=== PATIENT | female | born 1950 | race Hispanic/Latino ===

== ENCOUNTER → 2021-12-08 | Outpatient (CLI) | payer MEDICARE, OTHER ==
[~2021-12-08] MED LIST: ALPR0.5T8 PO; ATOR20TA65 PO; DICY20TA3 PO; ERGO500093 PO; FOLI1 PO; HYDR-4060 PO; LOSA50TA64 PO; METF-444 PO; SIME80TA12 PO
== END | disposition home or self-care (01) ==
LOC: RAH 10:01
PROVIDERS: ATTEND Internal Medicine Gastroenterology
DX: N82.4 Other female intestinal-genital tract fistulae (principal); Z93.3 Colostomy status
CPT/HCPCS: 72195; 74181

== ENCOUNTER → 2022-01-14 | Outpatient (CLI) | payer MEDICARE ==
[2022-01-14 11:01] LABS: CREATININE 1.2 mg/dL (0.5-1.5)
== END | disposition home or self-care (01) ==
LOC: RAH 09:52
PROVIDERS: ATTEND Surgery
DX: N82.4 Other female intestinal-genital tract fistulae (principal)
CPT/HCPCS: 36415; 74430; 82565; 84520

== ENCOUNTER → 2023-12-19 | Outpatient (CLI) | payer MEDICARE ==
[2023-12-19 13:04] LABS: CREATININE 2.5 mg/dL (0.5-1.0)
== END | disposition home or self-care (01) ==
LOC: LAB 12:20
PROVIDERS: ATTEND Internal Medicine
DX: R10.30 Lower abdominal pain, unspecified (principal)
CPT/HCPCS: 36415; 82565; 84520

== ENCOUNTER → 2023-12-26 | Outpatient (CLI) | payer MEDICARE | END | disposition home or self-care (01) | LOC: RAH 08:08 | PROVIDERS: ATTEND Internal Medicine | DX: K43.9 Ventral hernia without obstruction or gangrene (principal); K57.30 Diverticulosis of large intestine without perforation or abscess without bleeding; N32.89 Other specified disorders of bladder; I70.90 Unspecified atherosclerosis; M47.815 Spondylosis without myelopathy or radiculopathy, thoracolumbar region; R10.30 Lower abdominal pain, unspecified | CPT/HCPCS: 74176 ==

== ENCOUNTER 2024-09-14 10:57 | Emergency (ER) | payer MEDICARE ==
[~2024-09-14] VITALS: Ht 149.9 cm; Wt 62.1 kg
[2024-09-14] MEDS ORDERED: NEOMY SULF/BACITRA/POLYMYXIN B 1 EACH PACKET TP STA (11:32)
[2024-09-14] MEDS: LIDOCAINE HCL 1% 20 ML VIAL INJ STA (11:39)
--- NOTE | 2024-09-14 12:00 | ERN ---
ED Note History of Present Illness Stated Complaint: HEAD INJURY. FALL. LACERATION Chief Complaint: Head Injury Time Seen by MD: 11:03 Time Seen by Midlevel: 11:06 Dictation: 73-year-old female with a history of hypertension, diabetes, and kidney injury coming in complaints of head injury. Patient states this morning she put on her sandals did not tie them and when she ambulated she stumbled and hit the corner of the of base with her head. Patient has a laceration above the left eyebrow about 1 in. Denies taking any blood thinners. No LOC. no other complaints at this time. C-collar applied in triage. Allergies: Coded Allergies: No Known Drug Allergies (Unverified Allergy, Unknown, 08/20/15) Iodinated Contrast Media - IV Dye (Unverified Adverse Reaction, Mild, HIVES, 08/20/15) HAD 2 SMALL HIVES ON HER BODY. Uncoded Allergies: DUST, MOLDS, MILDEW, CATS, DOGS (Allergy, Unknown, HIVES, 08/20/15) FISH, CARROTS, PEANUTS,NUTS (Allergy, Unknown, HIVES, 08/20/15) Home Meds Reported Medications Simethicone (Simethicone) 80 Mg Tab.chew, 80 MG PO TIDP PRN for GI GAS, TAB.CHEW 11/25/19 Folic Acid (Folvite) 1 Mg Tab, 1 MG PO DAILY 11/25/19 Alprazolam (Alprazolam) 0.5 Mg Tablet, 0.5 MG PO HS PRN for INSOMNIA/SLEEP 11/25/19 Metformin HCl (Metformin HCl) 500 Mg Tablet, 250 MG PO DAILY 11/25/19 Ergocalciferol (Vitamin D2) (Vitamin D2) 1,250 Mcg Capsule, 1 CAP PO QWEEK 11/25/19 Losartan Potassium (Losartan Potassium) 50 Mg Tablet, 50 MG PO DAILY 11/25/19 Atorvastatin Calcium (Atorvastatin Calcium) 20 Mg Tablet, 20 MG PO HS 11/25/19 Hydrocodone/Acetaminophen (Hydrocodon-Acetaminophen 5-325) 1 Each Tablet, 1 TAB PO TIDP PRN for PAIN LEVEL 6 TO 10 11/25/19 Dicyclomine HCl (Dicyclomine HCl) 20 Mg Tablet, 20 MG PO TIDP PRN for PAIN LEVEL 1 TO 5, TAB 9/20/20 Past Medical History Past Medical History: Anemia, Cancer, CHF, High Cholesterol, Hypertension, Renal Disese Additional Past Medical Hx: COLON AND OVARIAN CANCER Surgical History: Other Surgical History Other: ILEOSTOMY Review of System Dictation Constitutional: Negative for fever,chills, and weight loss Eyes: Negative for injury, pain,redness, and discharge ENT: Negative for injury,pain or swelling Cardiovascular: Negative for chest pain, palpitations, and edema Respiratory: Negative for shortness of breath, cough, and wheezing, Abdomen/GI: Negative for abdominal pain, nausea, vomiting, diarrhea, and constipation Back: Negative for injury and pain : Negative for injury, bleeding and discharge MS/Extremity: Negative for injury and deformity Skin: Laceration to left eyebrow Neuro: Negative for headache, weakness, numbness, tingling, and seizure Psych: Negative for suicide ideation, homicidal ideation, and hallucinations Review of Systems: was completed Initial Vital Sign VS Vital Signs Date Time Temp Pulse Resp B/P (MAP) Pulse Ox O2 Delivery O2 Flow Rate FiO2 09/14/24 10:59 98.2 53 14 165/46 98 Room Air 0 Physical Exam Dictation General: awake, alert, NAD Head/Face: Normocephalic, atraumatic Eyes: PERRL, EOMI, vision at baseline ENT: oral cavity clear, TMs clear, no signs of infection Neck: Trachea midline, supple, no nuchal rigidity Cardiovascular: RRR, normal S1/S2, No MRGs, no JVD Respiratory: CTAB, no respiratory distress, No rales or wheezes Abdomen: Soft, non-tender, non-distended, normal bowel sounds, no guarding or rebound. Skin: 1 in laceration above the left eyebrow MS/Extremity: Pulses equal, no cyanosis, neurovascular intact, FROM Neuro: COAx4, GCS 15, strength 5/5, CN 2-12 intact, normal cerebellar exam, normal gait, Psych: Normal behavior, mood, and affect normal Results (Laboratory/Radiology) CT Scan Comment: [place] [id number] [place] [id number] IMAGING REPORT Signed PATIENT: MINA FORD MR#: [id number] : 1950 SEX: F AGE: 73 LOCATION: [facility] ORDER 04 STATUS: REG ER REPORT#: [id number] SERVICE 02 REASON: hit head with corner of vase ORDERING PHYSICIAN: BO GUERRERO NP PROCEDURE: HEAD WO - CT HEAD/BRAIN W/O CONTRAST EXAM: CT Head Without IV contrast. CLINICAL HISTORY: hit head with the corner of the vase TECHNIQUE: Axial computed tomography images of the head/brain without intravenous contrast. COMPARISON: None provided. FINDINGS: BRAIN: Tiny calcification foci are seen involving the right high parietal parafalcine lobe region, suggestive of old granulomatous aetiology. Mild age-related atrophic changes were noted in the form of prominence of cerebral sulci and ventricles. Ill-defined hypodensities seen involving bilateral periventricular white matter, suggestive of chronic small vessel ischaemic changes No evidence of acute hemorrhage. No CT evidence for acute territorial infarct. No midline shift or extra-axial collections. VENTRICLES: No hydrocephalus. ORBITS: The orbits are unremarkable. SINUSES AND MASTOIDS: The paranasal sinuses and mastoid air cells are clear. BONES: No fracture. SOFT TISSUES: Mild soft tissue swelling overlying the left frontal skull.IMPRESSION: 1. No acute intracranial findings. /[place] DICTATED BY: BLANCA HINSON Jr., MD DATE: 09/14/241354 ELECTRONICALLY SIGNED BY: BLANCA HINSON Jr., MD DATE: 09/14/24 [address] [id number] IMAGING REPORT Signed PATIENT: MINA FORD MR#: [id number] : 1950 SEX: F AGE: 73 LOCATION: ED ORDER 04 STATUS: REG ER [facility] REPORT#: [id number] SERVICE 02 REASON: hit head with corner of vase ORDERING PHYSICIAN: BO GUERRERO NP PROCEDURE: C SPIN WO - CT CERVICAL SPINE W/O CONTRAST EXAM: CT Cervical Spine Without IV contrast. CLINICAL HISTORY: hit head with corner of vase TECHNIQUE: Axial computed tomography images of the cervical spine without intravenous contrast. Sagittal and coronal reformatted images were generated. COMPARISON: None provided. FINDINGS: There is mild straightening of the cervical spine that may reflect paraspinal muscle spasm. There is cervical spondylosis evident by anterior osteophytes, uncovertebral joint hypertrophy(only for cervical joints), and multilevel facet joint osteoarthritis. There is mild to moderate multilevel disc disease, more pronounced at C4-C5 and C5-C6. Vertebral body heights are maintained without a displaced fracture. There is no significant spondylolisthesis. Paraspinal musculature and soft tissues are within normal limits. Lung apices demonstrate biapical parenchymal scarring and calcifications. IMPRESSION: 1. No acute osseous injury. 2. Cervical spondylosis and degenerative disc disease, most pronounced at C4-5 and C5-6. 3. Mild cervical straightening possibly due to muscle spasm. /[place] DICTATED BY: BLANCA HINSON Jr., MD DATE: 09/14/241357 ELECTRONICALLY SIGNED BY: BLANCA HINSON Jr., MD DATE: 09/14/241357 ED Course ED Course Orders Procedure Category Date Status Time Ct Head/Brain W/O CT 09/14/24 Resulted Contrast 11:03 Ct Cervical Spine W/O CT 09/14/24 Resulted Contrast 11:03 Lidocaine Hcl 1% 20ml PHA 09/14/24 Complete Vial (Lidocaine Hc 11:03 Neomy PHA 09/14/24 Complete Sulf/Bacitra/Polymyxin 11:32 Current Medications Medications (Trade) Dose Ordered Sig/Meena Route PRN Reason Start Time Stop Time Status Last Admin Dose Admin Lidocaine HCl (Lidocaine HCl 1% 20ml Vial) ONCE STAT INJ 09/14/24 11:03 09/14/24 11:06 DC 09/14/24 11:39 Neomycin/ Polymyxin/ Bacitracin (Triple Antibiotic Ointment) 1 appl ONCE STAT TP 09/14/24 11:32 09/14/24 11:34 DC Vital Signs Date Time Temp Pulse Resp B/P (MAP) Pulse Ox O2 Delivery O2 Flow Rate FiO2 09/14/24 10:59 98.2 53 14 165/46 98 Room Air 0 Medical Decision Making MDM MDM: 73-year-old female with a history of hypertension, diabetes, and kidney injury coming in complaints of head injury. Patient states this morning she put on her sandals did not tie them and when she ambulated she stumbled and hit the corner of the of base with her head. Patient has a laceration above the left eyebrow about 1 in. Denies taking any blood thinners. No LOC. no other complaints at this time. C-collar applied in triage. CT scans of the head and neck showed no acute findings. This was discussed with the patient and family member at bedside. Discussed on wound care and discussed when to return to the ER. Both verbalized understanding, answered all questions. Differential diagnosis: SDH, laceration, avulsion Rationale: Tests considered and ordered secondary to shared decision making include: Previous outside records reviewed: Old ER visits. Risk of complication and/or morbidity or mortality of patient management: None Medications-Per medication reconciliation Need for hospitalization: Patient does not meet criteria for hospitalization. Need for emergency major/minor surgery: No There are no social concerns with this patient. Prescription drug management Prescriptions will include symptomatic care Patient's prior external medical records from other ER visits were reviewed by me as indicated. Prior testing and results from previous visits were reviewed. Prior tests were taken into account with medical decision making and resource utilization, independent historian/historians were used to obtain complete medical history. I independently interpreted the test that were performed, results were reviewed by me and considered findings on radiology if ordered. Medical management and examination interpretation discussions were had by me with other qualified healthcare professionals as indicated for the patient's care. Procedure Wound Location: face (Above left eyebrow) Wound Length (cm): 3 Wound's Depth, Shape: superficial Wound Explored: clean Anesthesia: 1% Lidocaine Volume Anesthetic (ccs): 5 Wound Debrided: minimal Wound Repaired With: sutures Suture Size/Type: 3:0 Number of Sutures: 5 DX & DISP Disposition: Discharge Departure Impression: Primary Impression: Head contusion Additional Impression: Forehead laceration Condition: Stable Additional Instructions: Return to the emergency room 7-10 days to remove the sutures. Leave the sutures to air dry. Did not apply any ointments. Return to the hospital if you have any symptoms like confusion, nausea and vomiting. Follow up with your primary doctor in 1-2 days. Referrals: ROHINI LOUISE MD (PCP) I have reviewed the case, and I agree with, Diagnosis and Plan BO GUERRERO NP Sep 14, 2024 11:59
--- NOTE | 2024-09-14 12:55 | HMCIMG ---
EXAM: CT Head Without IV contrast. CLINICAL HISTORY: hit head with the corner of the vase TECHNIQUE: Axial computed tomography images of the head/brain without intravenous contrast. COMPARISON: None provided. FINDINGS: BRAIN: Tiny calcification foci are seen involving the right high parietal parafalcine lobe region, suggestive of old granulomatous aetiology. Mild age-related atrophic changes were noted in the form of prominence of cerebral sulci and ventricles. Ill-defined hypodensities seen involving bilateral periventricular white matter, suggestive of chronic small vessel ischaemic changes No evidence of acute hemorrhage. No CT evidence for acute territorial infarct. No midline shift or extra-axial collections. VENTRICLES: No hydrocephalus. ORBITS: The orbits are unremarkable. SINUSES AND MASTOIDS: The paranasal sinuses and mastoid air cells are clear. BONES: No fracture. SOFT TISSUES: Mild soft tissue swelling overlying the left frontal skull.IMPRESSION: 1. No acute intracranial findings. /[place]
--- NOTE | 2024-09-14 12:58 | HMCIMG ---
EXAM: CT Cervical Spine Without IV contrast. CLINICAL HISTORY: hit head with corner of vase TECHNIQUE: Axial computed tomography images of the cervical spine without intravenous contrast. Sagittal and coronal reformatted images were generated. COMPARISON: None provided. FINDINGS: There is mild straightening of the cervical spine that may reflect paraspinal muscle spasm. There is cervical spondylosis evident by anterior osteophytes, uncovertebral joint hypertrophy(only for cervical joints), and multilevel facet joint osteoarthritis. There is mild to moderate multilevel disc disease, more pronounced at C4-C5 and C5-C6. Vertebral body heights are maintained without a displaced fracture. There is no significant spondylolisthesis. Paraspinal musculature and soft tissues are within normal limits. Lung apices demonstrate biapical parenchymal scarring and calcifications. IMPRESSION: 1. No acute osseous injury. 2. Cervical spondylosis and degenerative disc disease, most pronounced at C4-5 and C5-6. 3. Mild cervical straightening possibly due to muscle spasm. /[place]
--- NOTE | 2024-09-14 13:00 | NUR ---
C-COLLAR CLEARED BY BO GUERRERO NP.
[2024-09-14 13:21] VITALS: BP 104/67; PULSE 75; RESP 15; TEMP 98.2; O2SAT 97
== END 2024-09-14 13:20 | disposition home or self-care (01) ==
LOC: EDH 10:57
DX: S01.81XA Laceration without foreign body of other part of head, initial encounter (principal); E78.00 Pure hypercholesterolemia, unspecified; I11.0 Hypertensive heart disease with heart failure; I50.9 Heart failure, unspecified; Z79.84 Long term (current) use of oral hypoglycemic drugs; Z79.899 Other long term (current) drug therapy; Z85.43 Personal history of malignant neoplasm of ovary; Z91.041 Radiographic dye allergy status; W18.39XA Other fall on same level, initial encounter; Y93.89 Activity, other specified; Y92.89 Other specified places as the place of occurrence of the external cause; Y99.8 Other external cause status
CPT/HCPCS: 12011; 12013; 70450; 72125; 99284